=== PATIENT | female | born 1995 | race Caucasian/White ===

== ENCOUNTER 2023-06-01 16:17 | Inpatient (IN) | payer OTHER, SELFPAY ==
[2023-06-01 16:53] VITALS: BP 137/90; PULSE 119; RESP 22; TEMP 37.3; O2SAT 98; BMI 43.9
--- NOTE | 2023-06-01 16:59 | ED.PSYCH ---
HPI - Psych General Chief Complaint: Psychiatric Symptoms Stated Complaint: manic episode/physch consult Time Seen by Provider: 06/01/23 18:10 Source: patient Mode of arrival: ambulatory Limitations: no limitations History of Present Illness HPI Narrative: Patient with bipolar disorder on Lamictal been having increased stress lately to sleep having manic episode increased depressed crying often denies SI or HI Related Data Home Medications Medication Instructions Recorded Confirmed cetirizine 10 mg tablet 10 mg PO DAILY 06/01/23 06/01/23 lamotrigine 25 mg tablet 50 mg PO BEDTIME 06/01/23 06/01/23 spironolactone 25 mg tablet 25 mg PO BID 06/01/23 06/01/23 Allergies Allergy/AdvReac Type Severity Reaction Status Date / Time environmental allergies Allergy Unknown Verified 06/01/23 18:38 Review of Systems Review of Systems: Yes all other systems are reviewed and are negative [facility] Social History Social History Smoked in Last 30 Days: No Use of substances other than those prescribed or required for medical reasons: No Advance Directives: No Advance Directives Information Provided: No Physical Exam Vital Signs: Vital Signs: Last Vital Signs Temp 99.1 F 06/01/23 16:53 Pulse 119 H 06/01/23 16:53 Resp 16 06/01/23 18:00 BP 137/90 H 06/01/23 16:53 Pulse Ox 98 06/01/23 16:53 O2 Del Method Room Air 06/01/23 16:53 BMI result Body Mass Index 43.9 Appearance: Alert. Oriented X3. No acute distress. Eyes: PERRLA, No Nystagmus ENT: Pharynx normal. Oral Mucosa moist Neck: Normal inspection. Neck supple. CVS: Normal heart rate and rhythm. Pulses normal. Respiratory: No respiratory distress. Equal air entry bilateral, no wheezing/rales/rhonchi Abdomen: Soft and nontender. Bowel sounds are present, no mass palpable, no CVA tenderness Skin: Skin warm and dry. Normal skin color. Normal skin turgor. Extremities: No lower extremity edema. No calf tenderness psych: Anxious crying often feels manic denies SI or HI Neuro: Oriented X 3. No motor deficit. No sensory deficit.No cerebellar signs , cranial nerves II-XII intact Course Course Course Narrative: This is an RME: Additional HPI, ROS, PE not included below will be deferred to primary provider. This is a [id number]-female, hx of bipolar disorder, presenting to the emergency department with a complaint of ?manic episode. Partner is here which reports that she has had a manic episode over the last week. No SI/HI. She has not slept in 30 hours. Started lamictal last month. Started higher dose of lamictal 50mg last night. Plan: Labs Medications Administered Discontinued Medications Generic Name Dose Route Start Last Admin Trade Name Freq PRN Reason Stop Dose Admin Lorazepam 2 mg 06/01/23 18:20 06/01/23 18:38 Lorazepam 1 Mg Tablet PO 06/01/23 18:21 2 mg ONCE ONE Administration Medical Decision Making Medical Decision Making [facility] Narrative: Patient seen by CT him plan to admit for bipolar disorder with depression Differential Diagnosis Differential Diagnoses: The differential diagnosis associated with the presentation includes Bipolar disorder/PTSD Lab Data [facility] Lab Attestation statement: I reviewed the patient's lab results. 06/01/23 19:19 06/01/23 19:19 Labs: Lab Results 06/01/23 06/01/23 Range/Units 19:19 20:45 WBC 13.6 H (4.8-10.8) X10*3/uL RBC 4.96 (4.20-5.50) X10*6/uL Hgb 13.9 (12.0-16.0) g/dl Hct 41.2 (37.0-47.0) % MCV 83.1 (80.0-98.0) fL MCH 28.0 (27.0-33.0) pg MCHC 33.7 (31.0-35.0) g/dl RDW 13.2 (11.0-16.0) % Plt Count 388 (160-400) X10*3/uL MPV 10.2 (9.4-12.3) fL Immature Gran % (Auto) 0.3 (0.0-0.4) % Neut % (Auto) 76.3 H (45-73) % Lymph % (Auto) 16.1 L (20-40) % [place] % (Auto) 6.8 (2-11) % Eos % (Auto) 0.1 (0-4) % Baso % (Auto) 0.4 (0-2) % Lymph # (Auto) 2.2 (1.2-4.9) X10*3/uL [place] # (Auto) 0.9 (0.1-1.2) X10*3/uL Eos # (Auto) 0.0 (0.0-0.4) X10*3/uL Baso # (Auto) 0.1 (0.0-0.2) X10*3/uL Abs Immat Gran (auto) 0.04 H (0.00-0.03) X10*3/uL Absolute Neuts (auto) 10.4 H (2.0-8.3) x10*3/uL Absolute Nucleated RBC 0.000 (0.0-0.012) X10*3/uL Nucleated RBC % (auto) 0.0 (0.0-0.2) /100WBC Sodium 142 (135-145) mmol/L Potassium 4.0 (3.3-5.1) mmol/L Chloride 107 (96-108) mmol/L Carbon Dioxide 24 (22-29) mmol/L Anion Gap 15 (12-20) BUN 12 (9-16) mg/dL Creatinine 0.77 (0.5-1.4) mg/dL Estim Creat Clear Calc 121.6 Estimated GFR > 60 Random Glucose 88 (60-115) mg/dL Calcium 10.5 H (8.4-10.2) mg/dL Total Bilirubin 0.2 (0.0-1.0) mg/dL Direct Bilirubin < 0.2 (0.0-0.5) mg/dL AST 26 (5-31) U/L ALT 26 (0-31) U/L Alkaline Phosphatase 85 (39-117) U/L Total Protein 9.2 H (6.5-8.0) g/dL Albumin 4.6 (3.5-5.0) g/dL Ethyl Alcohol < 10 mg/dL COVID-19 (AMISHA) Negative (Negative) COVID-19 Clin Com See Note Discharge Plan Discharge Clinical Impression: Bipolar disorder, Depression Patient Disposition: Still a Patient Prescriptions: No Action spironolactone 25 mg tablet 25 mg PO BID lamotrigine 25 mg tablet 50 mg PO BEDTIME cetirizine 10 mg Tablet 10 mg PO DAILY Interventions: [place]-Suicide Risk Severity Scale Last Done: 06/01/23 19:22
[2023-06-01 18:00] VITALS: RESP 16
[2023-06-01] MEDS: LORazepam 1 MG TABLET 2 MG PO (18:38)
--- OUTSIDE RECORDS SUMMARY | 2023-06-01 18:48 | XMS_ITS | Continuity of Care Document ---
Author Name Unknown Organization [facility] Address [address] [facility], [address] Floor, [address] [place] [id number]- Care Team Providers Care Flue Tile Press Operator Name Role Phone Shyann HERNANDEZ, Terri M Primary Care Physician Encounter [facility] Date(s): 07/16/19 - 07/26/19 [facility] [address], [address], [address] [place] [id number]- [facility] Attending Physician: Gema Christy Admitting Physician: Gema Christy Referring Physician: AdmtrGema Allergies, Adverse Reactions, Alerts Substance Reaction Severity Status NKA Active Immunizations Given and Recorded Vaccine Date Status Refusal Reason tetanus-diphtheria toxoids (Td) 04/04/17 Given influenza virus vaccine, inactivated 1 04/04/17 Gi hector influenza virus vaccine, inactivated 2 04/24/13 Gi hector Influenza Virus Vaccine (oldterm) 3 03/17/17 Given Meningococcal Conjugate Vaccine 12/30/13 Given tetanus/diphtheria/pertussis, acel(Tdap) 4 11/07/06 Given Haemophilus B-Hepatitis B Vaccine 5 94 Given 1Result Comment: [04/04/2017] [id number] 2Admin Note: FLUARIX 3Admin Note: declined 4Admin Note: [facility] 5Result Comment: [01/18/2013] historical data Medications albuterol 90 mcg/inh inhalation powder 2 puffs, Inhalation, Every 4 hours, PRN as needed, # 1 each, 0 Refills, Maintenance, 07/25/18 12:20:11 EST, Powder, 2 puffs Inhalation Every 4 hours,PRN:as needed Start Date: 07/25/18 Status: Ordered Cannabis (Schedule I Substance) 0 Refills, Maintenance, 07/25/18 11:47:47 EST Start Date: 07/25/18 Status: Ordered Problem List Condition Effective Dates Status Health Status Inform ant Childhood absence epilepsy(C onfirmed) 1 Active Hyperhidrosis(Confirmed) Active Common migraine(Confirmed) Active Nephrolithiasis(Confirmed) 02/07/13 Active Obesity (BMI 30-39.9)(Confirmed) Active 1In remission off treatment since 2004, age 9 Social History Social History Type Response Smoking Status Never smoker entered on: 04/04/17 Sex
--- OUTSIDE RECORDS SUMMARY | 2023-06-01 18:48 | XMS_ITS | Continuity of Care Document ---
Author Name Unknown Organization [facility] Address [address] [facility], [address] Floor, [address] [place] [id number]- Care Team Providers Care Youth Worker Name Role Phone Terri Boothe NP Primary Care Physician Encounter [facility] Date(s): 04/17/19 - 08/15/19 [facility] [address], [address], [address] [place] [id number]- [facility] Attending Physician: Kaylan Dior NP Admitting Physician: Kalyan Dior NP Referring Physician: Terri Boothe NP Allergies, Adverse Reactions, Alerts Substance Reaction Severity [...] Vaccine 5 94 Given 1Result Comment: [04/04/2017] [id number] 2Admin Note: FLUARIX 3Admin Note: declined 4Admin Note: [facility] 5Result Comment: [01/18/2013] historical data Medications [...]
[2023-06-01 19:28] LABS: MANUAL DIFF FLAG NO
[2023-06-01 19:32] LABS: Basophils Absolute Auto 0.1 X10*3/uL (0.0-0.2); Basophils Percent Auto 0.4 % (0-2); Eosinophils Percent Auto 0.1 % (0-4); Hematocrit 41.2 % (37.0-47.0); Hemoglobin 13.9 g/dl (12.0-16.0); Imm Gran Abs Auto 0.04 X10*3/uL (0.00-0.03); Imm Gran Pct Auto 0.3 % (0.0-0.4); Lymphocytes Absolute Auto 2.2 X10*3/uL (1.2-4.9); Lymphocytes Percent Auto 16.1 % (20-40); Mean Corpuscular HGB Conc 33.7 g/dl (31.0-35.0); Mean Corpuscular Volume 83.1 fL (80.0-98.0); Mean Platelet Volume 10.2 fL (9.4-12.3); Monocytes Absolute Auto 0.9 X10*3/uL (0.1-1.2); Monocytes Percent Auto 6.8 % (2-11); Neutrophils Absolute Auto 10.4 x10*3/uL (2.0-8.3); Neutrophils Percent Auto 76.3 % (45-73); Platelet Count 388 X10*3/uL (160-400); Red Blood Count 4.96 X10*6/uL (4.20-5.50); Red Cell Distribution Width 13.2 % (11.0-16.0); White Blood Count 13.6 X10*3/uL (4.8-10.8)
[2023-06-01 19:43] LABS: Ethanol < 10 mg/dL
[2023-06-01 19:46] LABS: Alanine Aminotransferase 26 U/L (0-31); Albumin Level 4.6 g/dL (3.5-5.0); Alkaline Phosphatase 85 U/L (39-117); Anion Gap 15 (12-20); Aspartate Amino Transferase 26 U/L (5-31); Bilirubin Direct < 0.2 mg/dL (0.0-0.5); Bilirubin Total 0.2 mg/dL (0.0-1.0); Blood Urea Nitrogen 12 mg/dL (9-16); Calcium 10.5 mg/dL (8.4-10.2); Carbon Dioxide 24 mmol/L (22-29); Chloride 107 mmol/L (96-108); Creatinine Clr Calc Pharmacy 121.6; Estimated Glomerular Filt Rate > 60; Glucose Random 88 mg/dL (60-115); Sodium 142 mmol/L (135-145); Total Protein 9.2 g/dL (6.5-8.0)
[2023-06-01 21:08] LABS: COVID-19 Test Negative (Negative); IDNOW Serial# 08D9AD1C
--- NOTE | 2023-06-01 22:13 | MHC.EDTECH ---
pt unable to provide enough urine for complete uranalysis testing. RN MADE AWARE. danny
[2023-06-02 00:43] LABS: Appearance Urine Turbid; Color Urine Dark Yellow; Glucose Urine UA Negative (Negative); Leukocyte Esterase Urine Negative (Negative); Nitrite Urine Negative (Negative); PH 5.5 (5.0-9.0); Specific Gravity - Urine >= 1.030 (1.005-1.025); UMIC TRIGGER UACC YES; Urine Blood Trace (Negative); Urine Ketones Trace mg/dL (Negative); Urine Protein Trace mg/dL (Neg-Trace)
[2023-06-02 00:45] LABS: Amphetamine Screen Urine Not Detected (Not Detect); Barbiturates, Urine Not Detected (Not Detect); Benzodiazepines Screen Urine Not Detected (Not Detect); Cannabinoid Screen Urine Not Detected (Not Detect); Cocaine Screen Urine Not Detected (Not Detect); Fentanyl, urine Not Detected (Not Detect); Opiate Screen Urine Not Detected (Not Detect); Phencyclidine Screen Urine Not Detected (Not Detect)
[2023-06-02 01:02] LABS: Bacteria Urine 4+ (None Seen); Calcium Oxalate Crystals Urine Present; Hyaline Casts Urine 0-2 /LPF (0-2); Squamous Epithelial Cell Urine >20 /HPF (0-2); WBC Urine 0-5 /HPF (0-5)
--- NOTE | 2023-06-02 03:15 | PC.NURSE ---
Took over care of Barbara at 3:00am, pt sleeping at this time.
[2023-06-02 03:40] LABS: UPreg QC Valid YES; Urine Pregnancy NEGATIVE (NEGATIVE)
[2023-06-02] MEDS: diphenhydrAMINE HCL 25 MG CAPSULE 50 MG PO (03:41)
[2023-06-02] MEDS: OLANZapine 10 MG TABLET PO (03:41)
--- NOTE | 2023-06-02 03:43 | PC.NURSE ---
Pt medicated per Mar.
--- NOTE | 2023-06-02 08:21 | MHC.CARE ---
Reference number [id number] Tania 06/02/23, assessment faxed to [phone]. Pt has [employer] managed by [facility], . Insurance rep gave online portal info, [email or web address]
--- NOTE | 2023-06-02 08:38 | PC.NURSE ---
Significant other notified of transferred to . CVB signed ,Transferred to with 2 RN`s and security
--- NOTE | 2023-06-02 09:13 | P.PNPSI_ITS ---
Subjective Subjective Date of Service: 06/02/23 Reason For Visit: Bipolar episode Interim History: Met with patient; discussed with team; reviewed notes Diagnostics Vital Signs (24Hr): Vital Signs - 24 hr 06/01/23 16:53 06/01/23 18:00 Temperature 99.1 F Pulse Rate 119 H Respiratory Rate 22 H 16 Blood Pressure 137/90 H Pulse Oximetry 98 Oxygen Delivery Method Room Air BMI result Body Mass Index 43.9 Labs 06/01/23 19:19 06/01/23 19:19 Labs: Laboratory Results - last 48 hr 06/01/23 06/01/23 06/01/23 19:19 20:45 21:38 WBC 13.6 H RBC 4.96 Hgb 13.9 Hct 41.2 MCV 83.1 MCH 28.0 MCHC 33.7 RDW 13.2 Plt Count 388 MPV 10.2 Immature Gran % (Auto) 0.3 Neut % (Auto) 76.3 H Lymph % (Auto) 16.1 L [place] % (Auto) 6.8 Eos % (Auto) 0.1 Baso % (Auto) 0.4 Lymph # (Auto) 2.2 [place] # (Auto) 0.9 Eos # (Auto) 0.0 Baso # (Auto) 0.1 Abs Immat Gran (auto) 0.04 H Absolute Neuts (auto) 10.4 H Absolute Nucleated RBC 0.000 Nucleated RBC % (auto) 0.0 Sodium 142 Potassium 4.0 Chloride 107 Carbon Dioxide 24 Anion Gap 15 BUN 12 Creatinine 0.77 Estim Creat Clear Calc 121.6 Estimated GFR > 60 Random Glucose 88 Calcium 10.5 H Total Bilirubin 0.2 Direct Bilirubin < 0.2 AST 26 ALT 26 Alkaline Phosphatase 85 Total Protein 9.2 H Albumin 4.6 Urine Color Dark Yellow Urine Appearance Turbid Urine pH 5.5 Ur Specific [place] >= 1.030 H Urine Protein Trace Urine Glucose (UA) Negative Urine Ketones Trace Urine Blood Trace H Urine Nitrite Negative Ur Leukocyte Esterase Negative Urine RBC 3-5 H Urine WBC 0-5 Ur Squamous Epith Cells >20 Calcium Oxalate Crystal Present Urine Bacteria 4+ Hyaline Casts 0-2 Urine Test Urine Opiates Screen Not Detected Urine Fentanyl Screen Not Detected Ur Barbiturates Screen Not Detected Ur Phencyclidine Scrn Not Detected Ur Amphetamines Screen Not Detected U Benzodiazepines Scrn Not Detected Urine Cocaine Screen Not Detected U Marijuana (THC) Screen Not Detected Ethyl Alcohol < 10 COVID-19 (AMISHA) Negative COVID-19 Clin Com See Note 06/02/23 03:30 WBC RBC Hgb Hct MCV MCH MCHC RDW Plt Count MPV Immature Gran % (Auto) Neut % (Auto) Lymph % (Auto) [place] % (Auto) Eos % (Auto) Baso % (Auto) Lymph # (Auto) [place] # (Auto) Eos # (Auto) Baso # (Auto) Abs Immat Gran (auto) Absolute Neuts (auto) Absolute Nucleated RBC Nucleated RBC % (auto) Sodium Potassium Chloride Carbon Dioxide Anion Gap BUN Creatinine Estim Creat Clear Calc Estimated GFR Random Glucose Calcium Total Bilirubin Direct Bilirubin AST ALT Alkaline Phosphatase Total Protein Albumin Urine Color Urine Appearance Urine pH Ur Specific [place] Urine Protein Urine Glucose (UA) Urine Ketones Urine Blood Urine Nitrite Ur Leukocyte Esterase Urine RBC Urine WBC Ur Squamous Epith Cells Calcium Oxalate Crystal Urine Bacteria Hyaline Casts Urine Test NEGATIVE Urine Opiates Screen Urine Fentanyl Screen Ur Barbiturates Screen Ur Phencyclidine Scrn Ur Amphetamines Screen U Benzodiazepines Scrn Urine Cocaine Screen U Marijuana (THC) Screen Ethyl Alcohol COVID-19 (AMISHA) COVID-19 Clin Com Medications Medications Current Medications Acetaminophen (Acetaminophen 325 Mg Tablet) 650 mg PO Q6H PRN PRN Reason: Headache/Pain Mild Scale (1-3) Al Hydroxide/Mg Hydroxide (Magnesium Hydrox/Alum Hydrox 30 Ml Oral.Susp) 30 ml PO Q6H PRN PRN Reason: Heartburn/Nausea Hydroxyzine HCl (Hydroxyzine Hcl 25 Mg Tablet) 25 mg PO Q6H PRN PRN Reason: Anxiety Lamotrigine (Lamotrigine 25 Mg Tablet) 50 mg PO BEDTIME TINO Loratadine (Loratadine 10 Mg Tablet) 10 mg PO DAILY TINO Lorazepam (Lorazepam 1 Mg Tablet) 1 mg PO Q4H PRN PRN Reason: chikis Magnesium Hydroxide (Milk Of Magnesia 30 Ml Oral.Susp) 30 ml PO DAILY PRN PRN Reason: Constipation Olanzapine (Olanzapine 5 Mg Tablet) 5 mg PO Q4H PRN PRN Reason: chikis Spironolactone (Spironolactone 25 Mg Tablet) 25 mg PO BID TINO; Protocol Trazodone HCl (Trazodone Hcl 50 Mg Tablet) 50 mg PO BEDTIME MRX1 PRN PRN Reason: Insomnia Allergies Allergies Allergy/AdvReac Type Severity Reaction Status Date / Time environmental allergies Allergy Unknown Verified 06/01/23 18:38 Assessment & Plan Time Spent With Patient Time: Total time managing care of this patient today ____ minutes.
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
[2023-06-02 10:44] VITALS: BP 147/75; PULSE 99; RESP 16; TEMP 37.4; O2SAT 98
[2023-06-02] MEDS: Spironolactone 25 MG TABLET PO ×2 (11:11→21:21)
[2023-06-02] MEDS: Loratadine 10 MG TABLET PO (11:11)
[2023-06-02] MEDS: LORazepam 1 MG TABLET PO ×2 (11:11→21:20)
--- NOTE | 2023-06-02 14:22 | PC.NURSE ---
pt is a 27year old cisgender woman who arrived on the unit 06/02/23 @ 0845am on a CV. Skin check and vitals performed, belongings inventoried, and pt own medications brought to pharmacy. Pt placed on 15 minute checks for safety. Pt was pleasant during admission assessment however was hyperverbal and tangential and kept referring back to theory and physics . Pts recollection of events leading up to hospitalization are unclear as patient could not focus on the question at hand. According to intake, the pts partner reports the pt has had poor sleep and increased depression in addition to being hyperverbal after recent med changes in April. Pt was oriented to the unit and all admission and legal paperwork completed.
[2023-06-02 14:24] LABS: Influenza A PCR NEGATIVE (Negative); Influenza B PCR NEGATIVE (Negative); Resp Syncy Virus RNA Qual PCR NEGATIVE (Negative); SARS COV2 PCR INHOUSE NEGATIVE (Negative)
[2023-06-02 18:00] VITALS: BP 147/87; PULSE 125; RESP 22; TEMP 36.6; O2SAT 100
[2023-06-02] MEDS: OLANZapine 5 MG TABLET PO (21:20)
[2023-06-02] MEDS: Lithium Carbonate ER 300 MG TABLET.ER 600 MG PO (21:20)
[2023-06-02] MEDS: traZODone HCL 50 MG TABLET PO (21:20)
[2023-06-02] MEDS: lamoTRIgine 25 MG TABLET 50 MG PO (21:20)
[2023-06-03] MEDS: Loratadine 10 MG TABLET PO (08:36)
[2023-06-03] MEDS: Spironolactone 25 MG TABLET PO ×2 (08:36→20:07)
[2023-06-03 08:40] VITALS: BP 126/74; PULSE 98; RESP 16; TEMP 36.4; O2SAT 100
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
--- NOTE | 2023-06-03 13:03 | PC.NURSE ---
pt's girlfriend called for an update on the pt and to provide information since the pts chikis and pressured speech make it difficult to gather the pt's history. Maria M (girlfriend) reports the patient was recently switched from Zoloft to Lamictal and few weeks ago which is when the pts symptoms and behavior began to decline. Maria M also reports the manic speech Gela is experiencing, in her opinion, is a symptom of her increased anxiety. Maria M also reports the patient has been diagnosed w/ PCOS and at her last appt (time unknown) and it was found the patient had a cyst that detached. Also it's reported the pt has not had a period in over 80days and Maria M believes some of the pts psychiatric symptoms may be hormonally based. Maria M also reports a family history of mental illness including an aunt diagnosed w/ schizoaffective disorder BP type and her mother, who has not sought mental help, but has a history of moravian preoccupation. Maria M reports that Gela and her mother are estranged as Gela is florez and her mother believes she will go to [facility].
[2023-06-03 18:00] VITALS: BP 124/89; PULSE 111; RESP 18
[2023-06-03] MEDS: traZODone HCL 50 MG TABLET PO (20:07)
[2023-06-03] MEDS: OLANZapine 5 MG TABLET PO (20:07)
[2023-06-03] MEDS: Lithium Carbonate ER 300 MG TABLET.ER 600 MG PO (20:07)
[2023-06-03] MEDS: lamoTRIgine 25 MG TABLET 50 MG PO (20:07)
--- NOTE | 2023-06-04 07:33 | MHC.CARE ---
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 Contact on fax is Margarita PUENTE, RN [facility] [place] RN [address] [place] [id number] P: [phone] F: [phone] emails: [email or web address] Send to the fax on unit 06/04 952y
[2023-06-04] MEDS: Loratadine 10 MG TABLET PO (09:01)
[2023-06-04] MEDS: Spironolactone 25 MG TABLET PO ×2 (09:01→21:54)
[2023-06-04 09:22] VITALS: BP 135/84; PULSE 98; RESP 16; TEMP 37; O2SAT 99
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
[2023-06-04 16:40] VITALS: BP 130/76; PULSE 105; RESP 16; TEMP 37; O2SAT 94
[2023-06-04] MEDS: lamoTRIgine 25 MG TABLET 50 MG PO (21:54)
[2023-06-04] MEDS: Lithium Carbonate ER 300 MG TABLET.ER 600 MG PO (21:58)
[2023-06-04] MEDS: OLANZapine 5 MG TABLET PO (21:58)
[2023-06-04] MEDS: LORazepam 1 MG TABLET PO (23:40)
[2023-06-05] MEDS: OLANZapine 5 MG TABLET PO ×2 (00:17→21:25)
[2023-06-05] MEDS: traZODone HCL 50 MG TABLET PO (01:01)
[2023-06-05 06:00] VITALS: BP 115/56; PULSE 89; RESP 16; TEMP 36.6; O2SAT 100
[2023-06-05] MEDS: Loratadine 10 MG TABLET PO (08:50)
[2023-06-05] MEDS: Spironolactone 25 MG TABLET PO ×2 (08:50→21:26)
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
[2023-06-05] MEDS: LORazepam 1 MG TABLET PO ×2 (13:46→21:25)
[2023-06-05 18:00] VITALS: BP 137/80; PULSE 111; TEMP 37; O2SAT 97
[2023-06-05] MEDS: Lithium Carbonate ER 450 MG TABLET.ER 900 MG PO (21:25)
[2023-06-05] MEDS: lamoTRIgine 25 MG TABLET 50 MG PO (21:26)
[2023-06-06 06:00] VITALS: BP 139/94; PULSE 94; RESP 16; TEMP 36.1; O2SAT 100
[2023-06-06] MEDS: Spironolactone 25 MG TABLET PO ×2 (08:25→21:25)
[2023-06-06] MEDS: Loratadine 10 MG TABLET PO (08:26)
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
[2023-06-06 13:20] VITALS: BP 130/71; PULSE 94
[2023-06-06] MEDS: OLANZapine 5 MG TABLET PO ×2 (13:32→21:25)
[2023-06-06] MEDS: cloNIDine HCL 0.1 MG TABLET PO (13:32)
[2023-06-06] MEDS: OLANZapine 10 MG TABLET PO (16:34)
[2023-06-06 18:00] VITALS: BP 114/70; PULSE 88; RESP 22; TEMP 36.7; O2SAT 97
[2023-06-06] MEDS: lamoTRIgine 25 MG TABLET 50 MG PO (21:25)
[2023-06-06] MEDS: traZODone HCL 50 MG TABLET PO (21:25)
[2023-06-06] MEDS: Lithium Carbonate ER 450 MG TABLET.ER 900 MG PO (21:25)
[2023-06-07] MEDS: Spironolactone 25 MG TABLET PO ×2 (07:58→20:19)
[2023-06-07] MEDS: Loratadine 10 MG TABLET PO (07:58)
[2023-06-07 08:10] VITALS: BP 118/69; PULSE 85; RESP 16; TEMP 37; O2SAT 98
[2023-06-07 08:47] LABS: Blood Urea Nitrogen 11 mg/dL (9-16); Creatinine Clr Calc Pharmacy 118.5; Estimated Glomerular Filt Rate > 60
[2023-06-07 08:53] LABS: Lithium 1.02 mmol/L (0.60-1.20)
[2023-06-07 17:15] VITALS: BP 120/70; PULSE 94; RESP 16; TEMP 37; O2SAT 98
[2023-06-07] MEDS: cloNIDine HCL 0.1 MG TABLET PO (17:26)
[2023-06-07] MEDS: OLANZapine 5 MG TABLET PO ×2 (17:26→20:20)
[2023-06-07] MEDS: traZODone HCL 50 MG TABLET PO ×2 (20:19→21:38)
[2023-06-07] MEDS: Lithium Carbonate ER 450 MG TABLET.ER 900 MG PO (20:20)
[2023-06-07] MEDS: lamoTRIgine 25 MG TABLET 50 MG PO (20:20)
[2023-06-08 01:40] VITALS: BP 115/73; PULSE 93
[2023-06-08] MEDS: hydrOXYzine HCL 25 MG TABLET PO ×2 (02:05→13:51)
[2023-06-08] MEDS: traZODone HCL 50 MG TABLET PO ×2 (03:19→21:15)
[2023-06-08] MEDS: OLANZapine 5 MG TABLET PO ×3 (03:19→21:09)
[2023-06-08 08:16] VITALS: BP 116/65; PULSE 75; RESP 16; TEMP 36.7; O2SAT 98
[2023-06-08] MEDS: Loratadine 10 MG TABLET PO (09:33)
[2023-06-08] MEDS: Spironolactone 25 MG TABLET PO ×2 (09:33→21:09)
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
[2023-06-08] MEDS: cloNIDine HCL 0.1 MG TABLET PO (13:51)
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
[2023-06-08 16:26] LABS: Lithium 0.72 mmol/L (0.60-1.20)
[2023-06-08 16:58] VITALS: BP 107/62; PULSE 88; RESP 16; TEMP 36.8; O2SAT 98
[2023-06-08] MEDS: lamoTRIgine 25 MG TABLET 50 MG PO (21:09)
[2023-06-08] MEDS: Lithium Carbonate ER 450 MG TABLET.ER 900 MG PO (21:10)
[2023-06-09] MEDS: traZODone HCL 50 MG TABLET PO ×2 (01:27→19:33)
[2023-06-09] MEDS: hydrOXYzine HCL 25 MG TABLET PO ×3 (01:27→20:17)
[2023-06-09] MEDS: cloNIDine HCL 0.1 MG TABLET PO (07:01)
[2023-06-09 08:50] VITALS: BP 128/80; PULSE 79; TEMP 36.8; O2SAT 98
[2023-06-09] MEDS: Spironolactone 25 MG TABLET PO ×2 (09:05→19:32)
[2023-06-09] MEDS: Loratadine 10 MG TABLET PO (09:05)
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
[2023-06-09] MEDS: OLANZapine 5 MG TABLET PO ×2 (12:30→19:32)
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
[2023-06-09 18:00] VITALS: BP 122/72; PULSE 78; RESP 16; TEMP 37.1; O2SAT 98
[2023-06-09] MEDS: Lithium Carbonate ER 450 MG TABLET.ER 900 MG PO (19:32)
[2023-06-09] MEDS: lamoTRIgine 25 MG TABLET 50 MG PO (19:32)
[2023-06-10 08:00] VITALS: BP 132/69; PULSE 88; RESP 18; TEMP 36.3; O2SAT 100
[2023-06-10 08:04] LABS: Lithium 1.04 mmol/L (0.60-1.20)
[2023-06-10 08:14] LABS: Anion Gap 16 (12-20); Blood Urea Nitrogen 12 mg/dL (9-16); Calcium 9.9 mg/dL (8.4-10.2); Carbon Dioxide 21 mmol/L (22-29); Chloride 106 mmol/L (96-108); Creatinine Clr Calc Pharmacy 110.1; Estimated Glomerular Filt Rate > 60; Glucose Random 81 mg/dL (60-115); Sodium 139 mmol/L (135-145)
[2023-06-10 08:32] LABS: TSH reflex Free T4 1.37 uIU/mL (0.32-4.0)
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
[2023-06-10] MEDS: Spironolactone 25 MG TABLET PO ×2 (09:28→20:07)
[2023-06-10] MEDS: Loratadine 10 MG TABLET PO (09:28)
[2023-06-10] MEDS: hydrOXYzine HCL 25 MG TABLET PO (09:29)
[2023-06-10] MEDS: cloNIDine HCL 0.1 MG TABLET PO (10:30)
[2023-06-10] MEDS: Divalproex Sodium ER 250 MG TAB.ER.24H PO (10:30)
[2023-06-10 20:00] VITALS: BP 110/70; PULSE 88; TEMP 36.9; O2SAT 95
[2023-06-10] MEDS: OLANZapine 5 MG TABLET PO (20:07)
[2023-06-10] MEDS: lamoTRIgine 25 MG TABLET 50 MG PO (20:07)
[2023-06-10] MEDS: traZODone HCL 50 MG TABLET PO (20:07)
[2023-06-10] MEDS: Lithium Carbonate ER 450 MG TABLET.ER 900 MG PO (20:07)
[2023-06-11] MEDS: traZODone HCL 50 MG TABLET PO ×2 (00:26→22:33)
[2023-06-11] MEDS: hydrOXYzine HCL 25 MG TABLET PO ×4 (00:26→22:33)
[2023-06-11 08:35] VITALS: BP 101/57; PULSE 78; TEMP 36.7; O2SAT 97
[2023-06-11] MEDS: Spironolactone 25 MG TABLET PO ×2 (08:57→22:32)
[2023-06-11] MEDS: Loratadine 10 MG TABLET PO (08:57)
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
[2023-06-11] MEDS: OLANZapine 5 MG TABLET PO ×3 (11:01→22:33)
[2023-06-11 14:55] VITALS: BP 117/72
[2023-06-11] MEDS: cloNIDine HCL 0.1 MG TABLET PO ×2 (14:56→18:51)
[2023-06-11 18:00] VITALS: BP 95/55; PULSE 82; RESP 17; TEMP 37; O2SAT 99
[2023-06-11] MEDS: Acetaminophen 325 MG TABLET 650 MG PO (18:54)
[2023-06-11 22:30] VITALS: BP 108/76; PULSE 84
[2023-06-11] MEDS: Lithium Carbonate ER 450 MG TABLET.ER 900 MG PO (22:32)
[2023-06-11] MEDS: lamoTRIgine 25 MG TABLET 50 MG PO (22:32)
[2023-06-11] MEDS: Divalproex Sodium ER 250 MG TAB.ER.24H 750 MG PO (22:33)
[2023-06-12] MEDS: traZODone HCL 50 MG TABLET PO (02:39)
[2023-06-12] MEDS: cloNIDine HCL 0.1 MG TABLET PO (06:26)
[2023-06-12] MEDS: hydrOXYzine HCL 25 MG TABLET PO (06:26)
[2023-06-12 06:29] VITALS: BP 105/62; PULSE 85
[2023-06-12 08:00] VITALS: BP 115/70; PULSE 84; RESP 16; TEMP 37; O2SAT 98
[2023-06-12] MEDS: Loratadine 10 MG TABLET PO (08:06)
[2023-06-12] MEDS: Spironolactone 25 MG TABLET PO ×2 (08:06→19:47)
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
[2023-06-12 17:12] VITALS: BP 121/58; PULSE 89; RESP 16; TEMP 36.9; O2SAT 95
[2023-06-12] MEDS: lamoTRIgine 25 MG TABLET 50 MG PO (19:47)
[2023-06-12] MEDS: Divalproex Sodium ER 250 MG TAB.ER.24H 750 MG PO (19:47)
[2023-06-12] MEDS: OLANZapine 5 MG TABLET PO (19:48)
[2023-06-12] MEDS: Lithium Carbonate ER 450 MG TABLET.ER 900 MG PO (19:48)
[2023-06-13] MEDS: hydrOXYzine HCL 25 MG TABLET PO ×2 (01:34→10:43)
[2023-06-13] MEDS: traZODone HCL 50 MG TABLET PO ×2 (01:34→20:38)
[2023-06-13 06:00] VITALS: BP 101/64; PULSE 85; RESP 18; TEMP 36.6; O2SAT 100
[2023-06-13] MEDS: cloNIDine HCL 0.1 MG TABLET PO ×2 (06:28→10:42)
[2023-06-13 08:30] VITALS: BP 118/69; PULSE 78; RESP 16; TEMP 36.2; O2SAT 94
[2023-06-13] MEDS: Spironolactone 25 MG TABLET PO ×2 (09:13→20:38)
[2023-06-13] MEDS: Loratadine 10 MG TABLET PO (09:13)
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
[2023-06-13] MEDS: OLANZapine 5 MG TABLET PO ×2 (10:01→22:26)
[2023-06-13 10:41] VITALS: BP 119/63; PULSE 89
[2023-06-13 18:00] VITALS: BP 129/66; PULSE 96; RESP 16; TEMP 38.7; O2SAT 97
[2023-06-13 19:39] LABS: MANUAL DIFF FLAG NO
[2023-06-13 19:40] LABS: Basophils Percent Auto 0.3 % (0-2); Eosinophils Percent Auto 0.1 % (0-4); Hematocrit 34.6 % (37.0-47.0); Hemoglobin 11.4 g/dl (12.0-16.0); Imm Gran Abs Auto 0.02 X10*3/uL (0.00-0.03); Imm Gran Pct Auto 0.2 % (0.0-0.4); Lymphocytes Absolute Auto 1.9 X10*3/uL (1.2-4.9); Lymphocytes Percent Auto 18.7 % (20-40); Mean Corpuscular HGB Conc 32.9 g/dl (31.0-35.0); Mean Corpuscular Hemoglobin 27.9 pg (27.0-33.0); Mean Corpuscular Volume 84.8 fL (80.0-98.0); Mean Platelet Volume 10.1 fL (9.4-12.3); Monocytes Absolute Auto 0.8 X10*3/uL (0.1-1.2); Monocytes Percent Auto 7.7 % (2-11); Neutrophils Absolute Auto 7.2 x10*3/uL (2.0-8.3); Platelet Count 300 X10*3/uL (160-400); Red Blood Count 4.08 X10*6/uL (4.20-5.50); Red Cell Distribution Width 13.3 % (11.0-16.0); White Blood Count 9.9 X10*3/uL (4.8-10.8)
[2023-06-13] MEDS: Divalproex Sodium ER 250 MG TAB.ER.24H 750 MG PO (20:37)
[2023-06-13] MEDS: Acetaminophen 325 MG TABLET 650 MG PO (20:37)
[2023-06-13] MEDS: lamoTRIgine 25 MG TABLET 50 MG PO (20:37)
[2023-06-13] MEDS: Lithium Carbonate ER 450 MG TABLET.ER 900 MG PO (20:37)
[2023-06-13 20:52] LABS: Influenza A PCR NEGATIVE (Negative); Influenza B PCR NEGATIVE (Negative); Resp Syncy Virus RNA Qual PCR NEGATIVE (Negative); SARS COV2 PCR INHOUSE NEGATIVE (Negative)
[2023-06-14] MEDS: Acetaminophen 325 MG TABLET 650 MG PO (06:12)
[2023-06-14] MEDS: hydrOXYzine HCL 25 MG TABLET PO ×2 (06:12→18:47)
[2023-06-14 08:00] VITALS: BP 103/55; PULSE 75; RESP 16; TEMP 36.6; O2SAT 100
[2023-06-14] MEDS: Spironolactone 25 MG TABLET PO ×2 (08:30→22:38)
[2023-06-14] MEDS: Loratadine 10 MG TABLET PO (08:30)
[2023-06-14 09:55] LABS: MANUAL DIFF FLAG NO
[2023-06-14 09:58] LABS: Basophils Percent Auto 0.4 % (0-2); Eosinophils Percent Auto 0.1 % (0-4); Hematocrit 35.7 % (37.0-47.0); Hemoglobin 11.9 g/dl (12.0-16.0); Imm Gran Abs Auto 0.01 X10*3/uL (0.00-0.03); Imm Gran Pct Auto 0.1 % (0.0-0.4); Lymphocytes Percent Auto 23.6 % (20-40); Mean Corpuscular HGB Conc 33.3 g/dl (31.0-35.0); Mean Corpuscular Hemoglobin 28.2 pg (27.0-33.0); Mean Corpuscular Volume 84.6 fL (80.0-98.0); Monocytes Absolute Auto 0.6 X10*3/uL (0.1-1.2); Monocytes Percent Auto 7.2 % (2-11); Neutrophils Absolute Auto 5.8 x10*3/uL (2.0-8.3); Neutrophils Percent Auto 68.6 % (45-73); Platelet Count 286 X10*3/uL (160-400); Red Blood Count 4.22 X10*6/uL (4.20-5.50); Red Cell Distribution Width 13.5 % (11.0-16.0); White Blood Count 8.5 X10*3/uL (4.8-10.8)
[2023-06-14 10:13] LABS: Ammonia 46 umol/L (13-55)
[2023-06-14 10:24] LABS: Alanine Aminotransferase 21 U/L (0-31); Albumin Level 4.1 g/dL (3.5-5.0); Alkaline Phosphatase 65 U/L (39-117); Anion Gap 12 (12-20); Aspartate Amino Transferase 26 U/L (5-31); Bilirubin Direct 0.1 mg/dL (0.0-0.5); Bilirubin Total 0.3 mg/dL (0.0-1.0); Carbon Dioxide 26 mmol/L (22-29); Chloride 103 mmol/L (96-108); Potassium 3.6 mmol/L (3.3-5.1); Sodium 137 mmol/L (135-145); Total Protein 7.7 g/dL (6.5-8.0)
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
[2023-06-14 13:59] VITALS: TEMP 36.9
[2023-06-14 14:25] VITALS: BP 114/68
[2023-06-14] MEDS: cloNIDine HCL 0.1 MG TABLET PO (14:25)
[2023-06-14] MEDS: OLANZapine 5 MG TABLET PO ×2 (18:47→22:37)
[2023-06-14 19:25] VITALS: BP 116/75; PULSE 88; RESP 16; TEMP 36.8; O2SAT 99
[2023-06-14 20:57] LABS: Influenza A PCR NEGATIVE (Negative); Influenza B PCR NEGATIVE (Negative); Resp Syncy Virus RNA Qual PCR NEGATIVE (Negative); SARS COV2 PCR INHOUSE NEGATIVE (Negative)
[2023-06-14 22:20] VITALS: BP 104/57; PULSE 81
[2023-06-14] MEDS: Divalproex Sodium ER 250 MG TAB.ER.24H 1250 MG PO (22:36)
[2023-06-14] MEDS: traZODone HCL 50 MG TABLET PO (22:37)
[2023-06-14] MEDS: Lithium Carbonate ER 450 MG TABLET.ER 900 MG PO (22:38)
[2023-06-15] MEDS: OLANZapine 5 MG TABLET PO ×3 (03:36→22:27)
[2023-06-15] MEDS: hydrOXYzine HCL 25 MG TABLET PO ×2 (03:38→13:22)
[2023-06-15] MEDS: cloNIDine HCL 0.1 MG TABLET PO (06:43)
[2023-06-15 07:00] VITALS: BMI 44.2
[2023-06-15] MEDS: Loratadine 10 MG TABLET PO (08:10)
[2023-06-15] MEDS: Spironolactone 25 MG TABLET PO ×2 (08:10→22:27)
[2023-06-15 08:25] VITALS: BP 96/53; PULSE 70; RESP 16; TEMP 36.7; O2SAT 97
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
[2023-06-15] MEDS: Acetaminophen 325 MG TABLET 650 MG PO (16:39)
[2023-06-15 18:00] VITALS: BP 97/53; PULSE 83; TEMP 36.9; O2SAT 98
--- NOTE | 2023-06-15 21:26 | P.CONHOSP_ITS ---
History of Present Illness Data of Consult Service Date: 06/15/23 Primary Care Provider: Terri Boothe NP HPI Reason for consult: Rash on calf and thigh bilaterally Patient is a 27-year-old female with a PMH significant for bipolar disorder who was admitted to [facility] psychiatry unit for manic episode and disorganized thought. Medical consult for bilateral rash on calf and thighs for patient on Lamictal to r/o SJS. Attempted to visit patient during late afternoon, but patient unavailable. Will attempt to revisit later in the evening or tomorrow during the day. Patient valuable for examination on 06/16/2023. Patient states she 1st noticed red rash on posterior left calf around Thanksgi. States she recently started Lamictal 1 week prior on 05/13. Patient soon developed symmetrical red rash on posterior right calf, and then more diffuse red rash on inner thighs bilaterally. Rashes neither painful nor pruritic. Patient denies prodrome flu- like symptoms: No fever, chills, nausea, vomiting, cough, rhinorrhea prior to rash starting. Patient reports a history of psoriasis primarily on her hands for which she has been seen at [facility]. Review of Systems 2 Review of Systems: Symmetrical red rash on posterior calves and inner thighs Denies rash is painful or pruritic Denies fever, chills, nausea, vomiting, abdominal pain No cough, rhinorrhea, nasal congestion PMFSH Medical History PTSD (post-traumatic stress disorder) Bipolar 1 disorder Social History Household Members: Significant Other Household Members Other:: Maria M (partner) and Toña (cat) Housing: Apartment Do you presently have visiting nurse or other home services: No Patient Tobacco Use Status: Never used Tobacco Smoked in Last 30 Days: No e-Cigarette/Vaping Use: Former Use Patient Interested in Nicotine Replacement: No Patient Given Instructions on How to Stop Smoking: No Second Hand Smoke Exposure: No Use of substances other than those prescribed or required for medical reasons: Yes Substance Use Type: Marijuana Last Used Substance Other:: marijuana 01/24/2022 Currently Displaying Signs/Symptoms of Drug Intoxication Withdrawal: No Any prior treatment program specific to substance use: No Have you been hit, kicked, punched, or otherwise hurt by someone within the past year? If so, by whom?: No Do you feel safe in your current relationship?: Yes Is there a partner from a previous relationship who is making you feel unsafe now?: No Are you made to feel afraid or neglected: No Spiritual Healthcare Practices: trying to find comfort in many different spiritual practices Advance Directives: No Advance Directives Information Provided: No Do you have thoughts of harming others: None Do you have a plan to hurt others: No Plan Recently lost weight without trying: No Eating poorly because of decreased appetite: No Nutrition Risks: No Nutritional Risk Patient : No : No Poor oral hygiene: No service: No Sexual orientation: Lesbian/Spencer/Homosexual Meds Allergies Allergy/AdvReac Type Severity Reaction Status Date / Time environmental allergies Allergy Unknown Verified 06/01/23 18:38 Active Medications: Current Medications Acetaminophen (Acetaminophen 325 Mg Tablet) 650 mg PO Q6H PRN PRN Reason: Headache/Pain Mild Scale (1-3) Last Admin: 06/15/23 16:39 Dose: 650 mg Al Hydroxide/Mg Hydroxide (Magnesium Hydrox/Alum Hydrox 30 Ml Oral.Susp) 30 ml PO Q6H PRN PRN Reason: Heartburn/Nausea Clonidine HCl (Clonidine Hcl 0.1 Mg Tablet) 0.1 mg PO Q4H PRN; Protocol PRN Reason: Anxiety Last Admin: 06/15/23 06:43 Dose: 0.1 mg Divalproex Sodium (Divalproex Sodium Er 250 Mg Tab.Er.24h) 1,250 mg PO BEDTIME TINO Last Admin: 06/14/23 22:36 Dose: 1,250 mg Hydroxyzine HCl (Hydroxyzine Hcl 25 Mg Tablet) 25 mg PO Q6H PRN PRN Reason: Anxiety Last Admin: 06/15/23 13:22 Dose: 25 mg Lamotrigine (Lamotrigine 25 Mg Tablet) 50 mg PO BEDTIME TINO Last Admin: 06/13/23 20:37 Dose: 50 mg [place] Carbonate ([place] Carbonate Er 450 Mg Tablet.Er) 900 mg PO BEDTIME TINO Last Admin: 06/14/23 22:38 Dose: 900 mg Loratadine (Loratadine 10 Mg Tablet) 10 mg PO DAILY [facility] Last Admin: 06/15/23 08:10 Dose: 10 mg Magnesium Hydroxide (Milk Of Magnesia 30 Ml Oral.Susp) 30 ml PO DAILY PRN PRN Reason: Constipation Olanzapine (Olanzapine 5 Mg Tablet) 5 mg PO Q4H PRN PRN Reason: chikis Last Admin: 06/15/23 13:22 Dose: 5 mg Olanzapine (Olanzapine 5 Mg Tablet) 5 mg PO BEDTIME TINO Last Admin: 06/14/23 22:37 Dose: 5 mg Spironolactone (Spironolactone 25 Mg Tablet) 25 mg PO BID TINO; Protocol Last Admin: 06/15/23 08:10 Dose: 25 mg Trazodone HCl (Trazodone Hcl 50 Mg Tablet) 50 mg PO BEDTIME MRX1 PRN PRN Reason: Insomnia Last Admin: 06/14/23 22:37 Dose: 50 mg Home Medications Medication Instructions Recorded Confirmed Last Taken Type cetirizine 10 mg tablet 10 mg PO DAILY 06/01/23 06/01/23 Unknown History lamotrigine 25 mg tablet 50 mg PO BEDTIME 06/01/23 06/01/23 05/31/23 20:00 History spironolactone 25 mg tablet 25 mg PO BID 06/01/23 06/01/23 06/01/23 08:00 History Physical Exam 2 Vital Signs and Narrative: Vital Signs: Last Vital Signs Temp 98.1 F 06/15/23 08:25 Pulse 70 06/15/23 08:25 Resp 16 06/15/23 08:25 BP 96/53 L 06/15/23 08:25 Pulse Ox 97 06/15/23 08:25 O2 Del Method Room Air 06/15/23 08:25 BMI result Body Mass Index 44.2 General: AOx3, no acute distress Resp: CTA bilaterally CVS: S1, S2, RRR GI: +BS, NT, no distention Skin: Areas of maculopapular rash on posterior calves bilaterally, more diffuse inner thighs bilaterally. Rash on posterior calf pictured below Neuro: Cranial nerves II-XII grossly intact bilaterally. Motor grossly intact bilaterally Extremities: No edema. Results Labs 06/14/23 09:38 06/14/23 09:38 Assessment and Plan (1) Maculopapular rash: Status: Acute Plan Patient is a 27-year-old female with a PMH significant for bipolar disorder who was admitted to psychiatry unit for manic episode and disorganized thought. Medical consult for bilateral rash on calf and thighs for patient on Lamictal to r/o SJS. Bilateral extremity rash Possibly secondary to lamotrigine use, started 1 week prior to rash eruption SJS unlikely: no prodrome flu-like symptoms, no desquamation Rash is not the predicted or painful, no intervention indicated at this time Lamotrigine on hold since last filling room operator for resolution of rash Thank you for allowing us to participate in the care of this patient. Signing off at this time. Please re-consult if rash worsens, pt develops additional symptoms, or skin begins to slough off.
[2023-06-15] MEDS: Lithium Carbonate ER 450 MG TABLET.ER 900 MG PO (22:27)
[2023-06-15] MEDS: traZODone HCL 50 MG TABLET PO (22:27)
[2023-06-15] MEDS: Divalproex Sodium ER 250 MG TAB.ER.24H 1250 MG PO (22:28)
[2023-06-16] MEDS: OLANZapine 5 MG TABLET PO ×3 (01:55→22:27)
[2023-06-16] MEDS: hydrOXYzine HCL 25 MG TABLET PO (06:52)
[2023-06-16] MEDS: Loratadine 10 MG TABLET PO (08:44)
[2023-06-16] MEDS: Spironolactone 25 MG TABLET PO ×2 (08:44→20:22)
[2023-06-16 08:47] VITALS: BP 96/61; PULSE 82; RESP 16; TEMP 37; O2SAT 98
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
[2023-06-16 18:00] VITALS: BP 141/86; PULSE 87; TEMP 36.9; O2SAT 100
[2023-06-16] MEDS: Lithium Carbonate ER 450 MG TABLET.ER 900 MG PO (20:21)
[2023-06-16] MEDS: Divalproex Sodium ER 250 MG TAB.ER.24H 1250 MG PO (20:22)
[2023-06-16] MEDS: traZODone HCL 50 MG TABLET PO (20:22)
[2023-06-16] MEDS: lamoTRIgine 25 MG TABLET 50 MG PO (20:22)
[2023-06-17] MEDS: Spironolactone 25 MG TABLET PO ×2 (08:22→19:52)
[2023-06-17] MEDS: Loratadine 10 MG TABLET PO (08:22)
[2023-06-17 08:27] VITALS: BP 113/69; PULSE 76; RESP 16; TEMP 36.8; O2SAT 99
[2023-06-17] MEDS: OLANZapine 5 MG TABLET PO ×2 (17:42→19:49)
[2023-06-17] MEDS: Acetaminophen 325 MG TABLET 650 MG PO (17:43)
[2023-06-17 18:00] VITALS: BP 103/58; PULSE 90; RESP 16; TEMP 37; O2SAT 99
[2023-06-17] MEDS: Lithium Carbonate ER 450 MG TABLET.ER 900 MG PO (19:50)
[2023-06-17] MEDS: Divalproex Sodium ER 250 MG TAB.ER.24H 1250 MG PO (19:50)
[2023-06-17] MEDS: lamoTRIgine 25 MG TABLET 50 MG PO (19:51)
--- NOTE | 2023-06-18 00:22 | HO.PSYCHPN ---
Subjective Subjective Date of Service: 06/17/23 Reason For Visit: Bipolar episode Interim History: Pt disorganized some improvement depakote olanzapine Medication Compliance: Yes Mental Status Exam Mental Status Exam Narrative: Pt is alert and oriented; behavior calm but disorganized; cooperative and friendly but also intrusive with peers; patient is not in distress; dressed in casual attire with adequately groomed; mood is described as good and affect a bit perplexed; eye contact appropriate;Speech, normal volume and prosody; intermittently, mild to moderate psychomotor agitation present; thought process can be goal oriented but is very quickly tangential and gets distracted or disorganized; Thought content is on various things, unrelated topics; tx; denies any SI/HI. No AVH Patients insight and judgment impaired Diagnostics Vital Signs (24Hr): Vital Signs - 24 hr 06/17/23 08:27 06/17/23 18:00 Temperature 98.2 F 98.6 F Pulse Rate 76 90 Respiratory Rate 16 16 Blood Pressure 113/69 103/58 L Pulse Oximetry 99 99 Oxygen Delivery Method Room Air Room Air BMI result Body Mass Index 44.2 Labs 06/14/23 09:38 06/14/23 09:38 Medications Medications Current Medications Acetaminophen (Acetaminophen 325 Mg Tablet) 650 mg PO Q6H PRN PRN Reason: Headache/Pain Mild Scale (1-3) Last Admin: 06/17/23 17:43 Dose: 650 mg Al Hydroxide/Mg Hydroxide (Magnesium Hydrox/Alum Hydrox 30 Ml Oral.Susp) 30 ml PO Q6H PRN PRN Reason: Heartburn/Nausea Clonidine HCl (Clonidine Hcl 0.1 Mg Tablet) 0.1 mg PO Q4H PRN; Protocol PRN Reason: Anxiety Last Admin: 06/15/23 06:43 Dose: 0.1 mg Divalproex Sodium (Divalproex Sodium Er 250 Mg Tab.Er.24h) 1,250 mg PO BEDTIME TINO Last Admin: 06/17/23 19:50 Dose: 1,250 mg Hydroxyzine HCl (Hydroxyzine Hcl 25 Mg Tablet) 25 mg PO Q6H PRN PRN Reason: Anxiety Last Admin: 06/16/23 06:52 Dose: 25 mg Lamotrigine (Lamotrigine 25 Mg Tablet) 50 mg PO BEDTIME TINO Last Admin: 06/17/23 19:51 Dose: 50 mg [place] Carbonate ([place] Carbonate Er 450 Mg Tablet.Er) 900 mg PO BEDTIME TINO Last Admin: 06/17/23 19:50 Dose: 900 mg Loratadine (Loratadine 10 Mg Tablet) 10 mg PO DAILY TINO Last Admin: 06/17/23 08:22 Dose: 10 mg Magnesium Hydroxide (Milk Of Magnesia 30 Ml Oral.Susp) 30 ml PO DAILY PRN PRN Reason: Constipation Olanzapine (Olanzapine 5 Mg Tablet) 5 mg PO Q4H PRN PRN Reason: chikis Last Admin: 06/17/23 17:42 Dose: 5 mg Olanzapine (Olanzapine 5 Mg Tablet) 5 mg PO BEDTIME TINO Last Admin: 06/17/23 19:49 Dose: 5 mg Spironolactone (Spironolactone 25 Mg Tablet) 25 mg PO BID TINO; Protocol Last Admin: 06/17/23 19:52 Dose: 25 mg Trazodone HCl (Trazodone Hcl 50 Mg Tablet) 50 mg PO BEDTIME MRX1 PRN PRN Reason: Insomnia Last Admin: 06/16/23 20:22 Dose: 50 mg Allergies Allergies Allergy/AdvReac Type Severity Reaction Status Date / Time environmental allergies Allergy Unknown Verified 06/01/23 18:38 Assessment & Plan Assessment & Plan (1) Maculopapular rash: Status: Acute Code(s): R21 - Rash and other nonspecific skin eruption Plan Consider increase olanzapine check lithium Depakote level Patient is a 27-year-old female with a PMH significant for bipolar disorder who was admitted to psychiatry unit for manic episode and disorganized thought. Medical consult for bilateral rash on calf and thighs for patient on Lamictal to r/o SJS. Bilateral extremity rash Possibly secondary to lamotrigine use, started 1 week prior to rash eruption SJS unlikely: no prodrome flu-like symptoms, no desquamation Rash is not the predicted or painful, no intervention indicated at this time Lamotrigine on hold since last data processing auditor for resolution of rash Thank you for allowing us to participate in the care of this patient. Signing off at this time. Please re-consult if rash worsens, pt develops additional symptoms, or skin begins to slough off. Current note for 06/17/2023 Consider increasing olanzapine check lithium Depakote level Reason for continued inpatient stay Substantial Risk for: inability to function and rapid decompensation Time Spent With Patient Time: Total time managing care of this patient today ____ minutes.
[2023-06-18] MEDS: hydrOXYzine HCL 25 MG TABLET PO (03:31)
[2023-06-18 06:00] VITALS: BP 111/76; PULSE 71; TEMP 36.9; O2SAT 100
[2023-06-18] MEDS: Loratadine 10 MG TABLET PO (08:24)
[2023-06-18] MEDS: Spironolactone 25 MG TABLET PO ×2 (08:24→20:36)
--- NOTE | 2023-06-18 11:32 | HO.PSYCHPN ---
Subjective Subjective Date of Service: 06/18/23 Reason For Visit: Bipolar episode Interim History: Patient more thoughtful organized in thought not psychotically preoccupied mood Mental Status Exam Mental Status Exam Narrative: Patient showing clear improvement organization of thought mood much more stable not overly paranoid Diagnostics Vital Signs (24Hr): Vital Signs - 24 hr 06/17/23 18:00 06/18/23 06:00 Temperature 98.6 F 98.4 F Pulse Rate 90 71 Respiratory Rate 16 Blood Pressure 103/58 L 111/76 Pulse Oximetry 99 100 Oxygen Delivery Method Room Air Room Air BMI result Body Mass Index 44.2 Labs 06/14/23 09:38 06/19/23 11:23 Medications Medications Current Medications Acetaminophen (Acetaminophen 325 Mg Tablet) 650 mg PO Q6H PRN PRN Reason: Headache/Pain Mild Scale (1-3) Last Admin: 06/17/23 17:43 Dose: 650 mg Al Hydroxide/Mg Hydroxide (Magnesium Hydrox/Alum Hydrox 30 Ml Oral.Susp) 30 ml PO Q6H PRN PRN Reason: Heartburn/Nausea Clonidine HCl (Clonidine Hcl 0.1 Mg Tablet) 0.1 mg PO Q4H PRN; Protocol PRN Reason: Anxiety Last Admin: 06/15/23 06:43 Dose: 0.1 mg Divalproex Sodium (Divalproex Sodium Er 250 Mg Tab.Er.24h) 1,250 mg PO BEDTIME TINO Last Admin: 06/17/23 19:50 Dose: 1,250 mg Hydroxyzine HCl (Hydroxyzine Hcl 25 Mg Tablet) 25 mg PO Q6H PRN PRN Reason: Anxiety Last Admin: 06/18/23 03:31 Dose: 25 mg Lamotrigine (Lamotrigine 25 Mg Tablet) 50 mg PO BEDTIME TINO Last Admin: 06/17/23 19:51 Dose: 50 mg [place] Carbonate ([place] Carbonate Er 450 Mg Tablet.Er) 900 mg PO BEDTIME TINO Last Admin: 06/17/23 19:50 Dose: 900 mg Loratadine (Loratadine 10 Mg Tablet) 10 mg PO DAILY TINO Last Admin: 06/18/23 08:24 Dose: 10 mg Magnesium Hydroxide (Milk Of Magnesia 30 Ml Oral.Susp) 30 ml PO DAILY PRN PRN Reason: Constipation Olanzapine (Olanzapine 5 Mg Tablet) 5 mg PO Q4H PRN PRN Reason: chikis Last Admin: 06/17/23 17:42 Dose: 5 mg Olanzapine (Olanzapine 5 Mg Tablet) 5 mg PO BEDTIME TINO Last Admin: 06/17/23 19:49 Dose: 5 mg Spironolactone (Spironolactone 25 Mg Tablet) 25 mg PO BID TINO; Protocol Last Admin: 06/18/23 08:24 Dose: 25 mg Trazodone HCl (Trazodone Hcl 50 Mg Tablet) 50 mg PO BEDTIME MRX1 PRN PRN Reason: Insomnia Last Admin: 06/16/23 20:22 Dose: 50 mg Allergies Allergies Allergy/AdvReac Type Severity Reaction Status Date / Time environmental allergies Allergy Unknown Verified 06/01/23 18:38 Assessment & Plan Assessment & Plan (1) Maculopapular rash: Status: Acute Code(s): R21 - Rash and other nonspecific skin eruption Plan Consider increase olanzapine check lithium Depakote level Patient is a 27-year-old female with a PMH significant for bipolar disorder who was admitted to [facility] psychiatry unit for manic episode and disorganized thought. Medical consult for bilateral rash on calf and thighs for patient on Lamictal to r/o SJS. Bilateral extremity rash Possibly secondary to lamotrigine use, started 1 week prior to rash eruption SJS unlikely: no prodrome flu-like symptoms, no desquamation Rash is not the predicted or painful, no intervention indicated at this time Lamotrigine on hold since last medical oncologist for resolution of rash Thank you for allowing us to participate in the care of this patient. Signing off at this time. Please re-consult if rash worsens, pt develops additional symptoms, or skin begins to slough off. Current note for 06/17/2023 Consider increasing olanzapine check lithium Depakote level 06/18/2023 Continue plan of care Reason for continued inpatient stay Substantial Risk for: harm to self, inability to function and rapid decompensation Time Spent With Patient Time: Total time managing care of this patient today ____ minutes.
[2023-06-18 20:35] VITALS: BP 135/77; PULSE 92; TEMP 37.1
[2023-06-18] MEDS: Divalproex Sodium ER 250 MG TAB.ER.24H 1250 MG PO (20:35)
[2023-06-18] MEDS: OLANZapine 5 MG TABLET PO (20:35)
[2023-06-18] MEDS: lamoTRIgine 25 MG TABLET 50 MG PO (20:36)
[2023-06-18] MEDS: Lithium Carbonate ER 450 MG TABLET.ER 900 MG PO (20:36)
[2023-06-18] MEDS: Acetaminophen 325 MG TABLET 650 MG PO (20:38)
--- NOTE | 2023-06-19 05:14 | PC.NURSE ---
Pt submitted a Three Day Notice on Monday up on 06/22/2023.
[2023-06-19 08:15] VITALS: BP 135/81; PULSE 88; RESP 16; TEMP 37.1; O2SAT 97
[2023-06-19] MEDS: Spironolactone 25 MG TABLET PO ×2 (10:06→21:02)
[2023-06-19] MEDS: Loratadine 10 MG TABLET PO (10:06)
--- NOTE | 2023-06-19 11:04 | P.PNPSI_ITS ---
Subjective Subjective Date of Service: 06/19/23 Reason For Visit: Bipolar episode Subjective Notes: Conditional Voluntary Interim History: Patient pleasant engage future oriented shows clear improvement Mental Status Exam Mental Status Exam Narrative: Patient showing clear improvement organization of thought mood much more stable not overly paranoid Diagnostics Vital Signs (24Hr): Vital Signs - 24 hr 06/18/23 20:35 Temperature 98.8 F Pulse Rate 92 Blood Pressure 135/77 BMI result Body Mass Index 44.2 Labs 06/14/23 09:38 06/19/23 11:23 Medications Medications Current Medications Acetaminophen (Acetaminophen 325 Mg Tablet) 650 mg PO Q6H PRN PRN Reason: Headache/Pain Mild Scale (1-3) Last Admin: 06/18/23 20:38 Dose: 650 mg Al Hydroxide/Mg Hydroxide (Magnesium Hydrox/Alum Hydrox 30 Ml Oral.Susp) 30 ml PO Q6H PRN PRN Reason: Heartburn/Nausea Clonidine HCl (Clonidine Hcl 0.1 Mg Tablet) 0.1 mg PO Q4H PRN; Protocol PRN Reason: Anxiety Last Admin: 06/15/23 06:43 Dose: 0.1 mg Divalproex Sodium (Divalproex Sodium Er 250 Mg Tab.Er.24h) 1,250 mg PO BEDTIME TINO Last Admin: 06/18/23 20:35 Dose: 1,250 mg Hydroxyzine HCl (Hydroxyzine Hcl 25 Mg Tablet) 25 mg PO Q6H PRN PRN Reason: Anxiety Last Admin: 06/18/23 03:31 Dose: 25 mg Lamotrigine (Lamotrigine 25 Mg Tablet) 50 mg PO BEDTIME TINO Last Admin: 06/18/23 20:36 Dose: 50 mg [place] Carbonate ([place] Carbonate Er 450 Mg Tablet.Er) 900 mg PO BEDTIME TINO Last Admin: 06/18/23 20:36 Dose: 900 mg Loratadine (Loratadine 10 Mg Tablet) 10 mg PO DAILY TINO Last Admin: 06/19/23 10:06 Dose: 10 mg Magnesium Hydroxide (Milk Of Magnesia 30 Ml Oral.Susp) 30 ml PO DAILY PRN PRN Reason: Constipation Olanzapine (Olanzapine 5 Mg Tablet) 5 mg PO Q4H PRN PRN Reason: chikis Last Admin: 06/17/23 17:42 Dose: 5 mg Olanzapine (Olanzapine 5 Mg Tablet) 5 mg PO BEDTIME TINO Last Admin: 06/18/23 20:35 Dose: 5 mg Spironolactone (Spironolactone 25 Mg Tablet) 25 mg PO BID TINO; Protocol Last Admin: 06/19/23 10:06 Dose: 25 mg Trazodone HCl (Trazodone Hcl 50 Mg Tablet) 50 mg PO BEDTIME MRX1 PRN PRN Reason: Insomnia Last Admin: 06/16/23 20:22 Dose: 50 mg Allergies Allergies Allergy/AdvReac Type Severity Reaction Status Date / Time environmental allergies Allergy Unknown Verified 06/01/23 18:38 Assessment & Plan Assessment & Plan (1) Maculopapular rash: Status: Acute Code(s): R21 - Rash and other nonspecific skin eruption Plan Consider increase olanzapine check lithium Depakote level Patient is a 27-year-old female with a PMH significant for bipolar disorder who was admitted to [facility] psychiat[facility] unit for manic episode and disorganized thought. Medical consult for bilateral rash on calf and thighs for patient on Lamictal to r/o SJS. Bilateral extremity rash Possibly secondary to lamotrigine use, started 1 week prior to rash eruption SJS unlikely: no prodrome flu-like symptoms, no desquamation Rash is not the predicted or painful, no intervention indicated at this time Lamotrigine on hold since last corporate strategy intern for resolution of rash Thank you for allowing us to participate in the care of this patient. Signing off at this time. Please re-consult if rash worsens, pt develops additional symptoms, or skin begins to slough off. Current note for 06/17/2023 Consider increasing olanzapine check lithium Depakote level 06/19/2023 Continue plan of care discharge planning Reason for continued inpatient stay Substantial Risk for: inability to function and rapid decompensation Time Spent With Patient Time: Total time managing care of this patient today ____ minutes.
[2023-06-19 11:40] LABS: Lithium 0.61 mmol/L (0.60-1.20); Lithium 0.63 mmol/L (0.60-1.20)
[2023-06-19 11:41] LABS: Ammonia 43 umol/L (13-55)
[2023-06-19 11:44] LABS: Valproate 70.8 mcg/mL (50.0-100.0)
[2023-06-19 11:49] LABS: Alanine Aminotransferase 24 U/L (0-31); Albumin Level 4.3 g/dL (3.5-5.0); Alkaline Phosphatase 62 U/L (39-117); Anion Gap 14 (12-20); Aspartate Amino Transferase 26 U/L (5-31); Bilirubin Total 0.2 mg/dL (0.0-1.0); Blood Urea Nitrogen 8 mg/dL (9-16); Calcium 10.1 mg/dL (8.4-10.2); Carbon Dioxide 28 mmol/L (22-29); Chloride 104 mmol/L (96-108); Creatinine Clr Calc Pharmacy 109.2; Estimated Glomerular Filt Rate > 60; Glucose Fasting 99 mg/dL (60-99); Potassium 4.1 mmol/L (3.3-5.1); Sodium 142 mmol/L (135-145); Total Protein 8.1 g/dL (6.5-8.0)
[2023-06-19] MEDS: hydrOXYzine HCL 25 MG TABLET PO (17:29)
[2023-06-19] MEDS: cloNIDine HCL 0.1 MG TABLET PO (17:29)
[2023-06-19 18:00] VITALS: BP 127/74; PULSE 82; RESP 18; TEMP 36.4; O2SAT 98
[2023-06-19] MEDS: OLANZapine 5 MG TABLET PO (19:02)
[2023-06-19] MEDS: Divalproex Sodium ER 250 MG TAB.ER.24H 1250 MG PO (21:02)
[2023-06-19] MEDS: Lithium Carbonate ER 450 MG TABLET.ER 900 MG PO (21:03)
[2023-06-19] MEDS: traZODone HCL 50 MG TABLET PO (21:04)
[2023-06-19] MEDS: lamoTRIgine 25 MG TABLET 50 MG PO (21:04)
[2023-06-20] MEDS: hydrOXYzine HCL 25 MG TABLET PO ×2 (01:08→23:19)
[2023-06-20] MEDS: OLANZapine 5 MG TABLET PO (01:08)
[2023-06-20 08:45] VITALS: BP 109/61; PULSE 87; RESP 16; TEMP 36.9; O2SAT 100
[2023-06-20] MEDS: Spironolactone 25 MG TABLET PO ×2 (08:53→20:06)
[2023-06-20] MEDS: Loratadine 10 MG TABLET PO (08:53)
--- NOTE | 2023-06-20 16:09 | HO.PSYCHPN ---
Subjective Subjective Date of Service: 06/20/23 Reason For Visit: Bipolar episode Subjective Notes: 3 Day Healthcare Proxy: No Guardianship: No Medical Problems Affecting Mental Status: No Interim History: Three day notice submitted. Reports poor sleep (3 hours) Improvement notes with some illogical content. Review of med regime, current sx. Will increase Olanzapine to 10 mg hs with pt approval to assist with sleep quality and decrease need for prn. Reports she awakens hearing noise in the [place] and I feel the sense of urgency to wake States Olanzapine prn helps her return, thus her agreement to change standing dose to 10 mg. Discussed her TDN. Discussed her comforts of order and organization and would like to review regime with Marylou, PCP, therapist and prescriber for their agreement prior to discharge. Medication Compliance: Yes Side effects from medications: No Attending Groups: Intermittent Review of Systems Acute medical concerns: No Medical Review of Systems: unchanged Review of Systems Review of Systems Yes all other systems are reviewed and are negative (pt denies sx today.) Mental Status Exam Mental Status Exam Patient Appearance: Appropriate Patient Orientation: Person, Place, Time and Situation Level of Consciousness: Alert Patient Behavior: Appropriate, Talkative, Cooperative and Good Eye Contact Mood Description: Anxious Affect Description: Anxious and Apprehensive Patient Cognition Impaired: No Ability to Follow Directions: Good Speech Pattern: Spontaneous Speech Memory Description: Episodic Impaired Hallucinations: None Delusions: Not Present Perceptual Disturbances: Depersonalization Thought Process: Distracted Thought Content: positive for Circumstantial and positive for Suicidal Ideation (denies) Depressive Symptoms: Increased Anxiety and Difficulty Sleeping Judgement: Fair Diagnostics Vital Signs (24Hr): Vital Signs - 24 hr 06/19/23 18:00 06/20/23 08:45 Temperature 97.6 F 98.4 F Pulse Rate 82 87 Respiratory Rate 18 16 Blood Pressure 127/74 109/61 Pulse Oximetry 98 100 Oxygen Delivery Method Room Air Room Air BMI result Body Mass Index 44.2 Labs 06/14/23 09:38 06/19/23 11:23 Labs: Laboratory Results - last 48 hr 06/19/23 06/19/23 06/19/23 11:22 11:23 11:23 Sodium 142 Potassium 4.1 Chloride 104 Carbon Dioxide 28 Anion Gap 14 BUN 8 L Creatinine 0.86 Estim Creat Clear Calc 109.2 Estimated GFR > 60 Fasting Glucose 99 Calcium 10.1 Total Bilirubin 0.2 AST 26 ALT 24 Alkaline Phosphatase 62 Ammonia 43 Total Protein 8.1 H Albumin 4.3 Valproic Acid 70.8 [place] 0.61 0.63 Medications Medications Current Medications Acetaminophen (Acetaminophen 325 Mg Tablet) 650 mg PO Q6H PRN PRN Reason: Headache/Pain Mild Scale (1-3) Last Admin: 06/18/23 20:38 Dose: 650 mg Al Hydroxide/Mg Hydroxide (Magnesium Hydrox/Alum Hydrox 30 Ml Oral.Susp) 30 ml PO Q6H PRN PRN Reason: Heartburn/Nausea Clonidine HCl (Clonidine Hcl 0.1 Mg Tablet) 0.1 mg PO Q4H PRN; Protocol PRN Reason: Anxiety Last Admin: 06/19/23 17:29 Dose: 0.1 mg Divalproex Sodium (Divalproex Sodium Er 250 Mg Tab.Er.24h) 1,250 mg PO BEDTIME TINO Last Admin: 06/19/23 21:02 Dose: 1,250 mg Hydroxyzine HCl (Hydroxyzine Hcl 25 Mg Tablet) 25 mg PO Q6H PRN PRN Reason: Anxiety Last Admin: 06/20/23 01:08 Dose: 25 mg Lamotrigine (Lamotrigine 25 Mg Tablet) 50 mg PO BEDTIME TINO Last Admin: 06/19/23 21:04 Dose: 50 mg [place] Carbonate ([place] Carbonate Er 450 Mg Tablet.Er) 900 mg PO BEDTIME TINO Last Admin: 06/19/23 21:03 Dose: 900 mg Loratadine (Loratadine 10 Mg Tablet) 10 mg PO DAILY TINO Last Admin: 06/20/23 08:53 Dose: 10 mg Magnesium Hydroxide (Milk Of Magnesia 30 Ml Oral.Susp) 30 ml PO DAILY PRN PRN Reason: Constipation Olanzapine (Olanzapine 5 Mg Tablet) 5 mg PO Q4H PRN PRN Reason: chikis Last Admin: 06/19/23 19:02 Dose: 5 mg Olanzapine (Olanzapine 5 Mg Tablet) 5 mg PO BEDTIME TINO Last Admin: 06/20/23 01:08 Dose: 5 mg Spironolactone (Spironolactone 25 Mg Tablet) 25 mg PO BID TINO; Protocol Last Admin: 06/20/23 08:53 Dose: 25 mg Trazodone HCl (Trazodone Hcl 50 Mg Tablet) 50 mg PO BEDTIME MRX1 PRN PRN Reason: Insomnia Last Admin: 06/19/23 21:04 Dose: 50 mg Allergies Allergies Allergy/AdvReac Type Severity Reaction Status Date / Time environmental allergies Allergy Unknown Verified 06/01/23 18:38 Assessment & Plan Assessment & Plan (1) Maculopapular rash: Status: Acute Code(s): R21 - Rash and other nonspecific skin eruption Plan Consider increase olanzapine check lithium Depakote level Patient is a 27-year-old female with a PMH significant for bipolar disorder who was admitted to psychiatry unit for manic episode and disorganized thought. Medical consult for bilateral rash on calf and thighs for patient on Lamictal to r/o SJS. Bilateral extremity rash Possibly secondary to lamotrigine use, started 1 week prior to rash eruption SJS unlikely: no prodrome flu-like symptoms, no desquamation Rash is not the predicted or painful, no intervention indicated at this time Lamotrigine on hold since last residential installer for resolution of rash Thank you for allowing us to participate in the care of this patient. Signing off at this time. Please re-consult if rash worsens, pt develops additional symptoms, or skin begins to slough off. Current note for 06/17/2023 Consider increasing olanzapine check lithium Depakote level 06/19/2023 Continue plan of care discharge planning 06/20/23- Increase Olanzapine to 10 mg HS. Informed Consent: further education needed Reason for continued inpatient stay Substantial Risk for: rapid decompensation Time Spent With Patient Time: Total time managing care of this patient today ____ minutes.
[2023-06-20 18:00] VITALS: BP 118/65; PULSE 92; RESP 18; TEMP 36.9; O2SAT 98
[2023-06-20] MEDS: Divalproex Sodium ER 250 MG TAB.ER.24H 1250 MG PO (20:05)
[2023-06-20] MEDS: lamoTRIgine 25 MG TABLET 50 MG PO (20:06)
[2023-06-20] MEDS: traZODone HCL 50 MG TABLET PO (20:06)
[2023-06-20] MEDS: OLANZapine 10 MG TABLET PO (20:06)
[2023-06-20] MEDS: Lithium Carbonate ER 450 MG TABLET.ER 900 MG PO (20:06)
[2023-06-21 08:17] VITALS: BP 114/61; PULSE 99; RESP 16; TEMP 36.9; O2SAT 97
[2023-06-21] MEDS: Spironolactone 25 MG TABLET PO ×2 (08:44→22:00)
[2023-06-21] MEDS: Loratadine 10 MG TABLET PO (08:44)
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
[2023-06-21] MEDS: OLANZapine 5 MG TABLET PO (12:23)
[2023-06-21] MEDS: cloNIDine HCL 0.1 MG TABLET PO (16:01)
[2023-06-21 18:35] VITALS: BP 122/70; PULSE 86; RESP 16; TEMP 36.8; O2SAT 99
[2023-06-21] MEDS: lamoTRIgine 25 MG TABLET 50 MG PO (21:58)
[2023-06-21] MEDS: Lithium Carbonate ER 450 MG TABLET.ER 900 MG PO (21:59)
[2023-06-21] MEDS: Divalproex Sodium ER 250 MG TAB.ER.24H 1250 MG PO (21:59)
[2023-06-21] MEDS: OLANZapine 10 MG TABLET PO (22:01)
[2023-06-21] MEDS: Hydrocortisone 1 % Cream 28.35 GM TUBE 1 APPL TOPICAL (22:11)
[2023-06-22 07:35] VITALS: BP 104/70; PULSE 72; RESP 16; TEMP 36.4; O2SAT 99
[2023-06-22] MEDS: Loratadine 10 MG TABLET PO (08:32)
[2023-06-22] MEDS: Spironolactone 25 MG TABLET PO (08:32)
[2023-06-22] MEDS: OLANZapine 5 MG TABLET PO (09:11)
[2023-06-22] MEDS: Hydrocortisone 1 % Cream 28.35 GM TUBE 1 APPL TOPICAL (09:12)
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
[2023-06-22] MEDS: cloNIDine HCL 0.1 MG TABLET PO (11:14)
[2023-06-22 11:15] VITALS: BP 123/62; PULSE 92
[2023-06-22] MEDS: Acetaminophen 325 MG TABLET 650 MG PO (12:51)
== END 2023-06-22 14:41 | disposition home or self-care (01) | DRG 885 ==
LOC: HO.ED 06-02 08:40 → HO.PM5 06-02 08:49
PROVIDERS: Physician Assistant Medical; Psychiatry & Neurology Psychiatry; Social Worker; Student in an Organized Health Care Education/Training Program; Admitting Provider Clinical Nurse Specialist Psychiatric/Mental Health, Adult; Emergency Provider Internal Medicine; PCP Nurse Practitioner Adult Health; Visit Provider Psychiatry & Neurology Psychiatry
DX: F31.2 Bipolar disorder, current episode manic severe with psychotic features (principal); L27.1 Localized skin eruption due to drugs and medicaments taken internally; T42.6X5A Adverse effect of other antiepileptic and sedative-hypnotic drugs, initial encounter; Z20.822 Contact with and (suspected) exposure to COVID-19; Z79.899 Other long term (current) drug therapy
CPT/HCPCS: 0241U; 36415; 80048; 80051; 80053; 80076; 80164; 80178; 80307; 81001; 81025; 82140; 82565; 84443; 84520; 85025; 87635; 99285; S9485

== ENCOUNTER → 2023-06-02 08:28 | Outpatient (BNV) | payer OTHER, SELFPAY | PROVIDERS: Admitting Provider Clinical Nurse Specialist Psychiatric/Mental Health, Adult; Emergency Provider Internal Medicine; PCP Nurse Practitioner Adult Health; Visit Provider Psychiatry & Neurology Psychiatry | DX: F31.2 Bipolar disorder, current episode manic severe with psychotic features (principal); F43.11 Post-traumatic stress disorder, acute; R21 Rash and other nonspecific skin eruption | CPT/HCPCS: 90792; 99231; 99232; 99238 ==

== ENCOUNTER → 2023-06-02 08:28 | Outpatient (BNV) | payer OTHER, SELFPAY | PROVIDERS: Admitting Provider Clinical Nurse Specialist Psychiatric/Mental Health, Adult; Emergency Provider Internal Medicine; PCP Nurse Practitioner Adult Health; Visit Provider Student in an Organized Health Care Education/Training Program | DX: R21 Rash and other nonspecific skin eruption (principal) | CPT/HCPCS: 99221 ==

== ENCOUNTER → 2023-06-02 08:28 | Outpatient (BNV) | payer OTHER, SELFPAY | PROVIDERS: Admitting Provider Clinical Nurse Specialist Psychiatric/Mental Health, Adult; Emergency Provider Internal Medicine; PCP Nurse Practitioner Adult Health; Visit Provider Psychiatry & Neurology Psychiatry | DX: F31.2 Bipolar disorder, current episode manic severe with psychotic features (principal); F43.11 Post-traumatic stress disorder, acute; R21 Rash and other nonspecific skin eruption | CPT/HCPCS: 99231 ==

== ENCOUNTER 2023-07-28 09:15 | Outpatient (RCR) | payer OTHER, SELFPAY ==
[2023-07-17 13:06] VITALS: BP 102/60; PULSE 80; TEMP 37.4
[2023-07-17 13:10] VITALS: BMI 45.2
--- NOTE | 2023-07-17 13:53 | PC.ADMIT ---
Patient is a 27 year old female who was referred to [facility] by [facility] inpatient behavioral health unit d/t mood instability. According to records patient has a history of Bipolar disorder most recent episode manic as she presented as hyperactive. Her speech was hyperverbal, tangential and pressured. She was reportedly difficult to understand at times, not logical talking about data bases. Along with some grandiosity. She reports she had not been sleeping for days prior to hospitalization. Patient currently presented with anxious mood and affect. She denied SI. I gave her a copy of her safety plan if needed. She is calm and cooperative. Speech is WNL. Thoughts are logical, no delusions noted. She wants more support while at [facility] with continued mood stabilization so she does not have to go back to inpatient LOC. Medications reconciled with d/c medication list from inpatient LOC. Patient reports some changes were made by her prescriber Dr Paredes including d/c of Lamotrigine and decreased Hydroxyzine to daily at .
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
--- NOTE | 2023-07-20 18:29 | HO.PHP ---
Client's case has been opened and reviewed in treatment team.
--- NOTE | 2023-07-24 19:30 | P.PNPSP_ITS ---
Subjective Subjective Date of Service: 07/24/23 Reason For Visit: bipolar Interim History: Patient still reports having shakes, even with lowering dose of lithium Er from 900 mg to 450 mg last week. She has not appreciated any reemergence of manic symptoms, however she reports feeling more tired and perhaps slightly lower mood. She reports that the fatigue might be related to OTC cetirizine which she reportedly finds more sedating than the prescribed version and asks if this can be refilled today. She still appears emotionally blunted and given ongoing tremor, suspect patient is still overmedicated. For now, will turn attention to lowering the Depakote, since it's primarily for treating manic side of bipolar spectrum; decreasing it is less likely to cause depression (vs lithium and olanzapine better for depressive sx) may consider propranolol for tremors, however would rather identify and reduce the medication that may be causing tremors (pt denies any hx of tremors prior to hospitalization/start on current 3 mood stabilizers) Complains of depressive symptoms (low mood, low energy, low motivation, numbness, apathy). she denies feeling sadness or dysphoria, denies hopelessness or SI - perhaps symptoms are related to being overmedicated she presents with some signs of physical and cognitive slowing (minimal blinking, flat affect, lacking spontaneity of expressions of movements, gait lacking fluidity (no arm swing) She agrees to plan to try lowering dose of Depakote, and is aware to watch for any emerging s/s of chikis or overactivation Medication Compliance: Yes Side effects from medications: Yes (as noted) Attending Groups: Yes Review of Systems Acute medical concerns: Yes Mental Status Exam Mental Status Exam Narrative: Alert, oriented, in no acute distress. Calm, cooperative, engaged. No psychomotor agitation, perhaps some psychomotor slowing, but no neurovegetative retardation. Eye contact maintained. Mood depressed, blunted affect. Speech normal. Thought process linear, coherent. Thought content related to stressors, denies transient hopelessness, denies SI or HI. No paranoia or delusional content elicited. No evidence of psychosis. Insight and judgment fair but adequate. Diagnostics Vital Signs (24Hr): BMI result Body Mass Index 45.2 Assessment & Plan Assessment & Plan (1) Bipolar I disorder with depression: Status: Acute Code(s): F31.9 - Bipolar disorder, unspecified (2) PTSD (post-traumatic stress disorder): Status: Acute Code(s): F43.10 - Post-traumatic stress disorder, unspecified Plan decrease Depakote ER to 1000 mg qhs (from 1250 mg) continue lithium ER 450 mg qhs (?tremor) continue olanzapine 10 mg continue olanzapine 5 mg PRN agitation hold clonidine (pt is not taking currently) lab work from 05/2023 reviewed including Li and VPA levels, LFTs, renal and thyroid fxn continue to monitor Telehealth Location of provider rendering services: other (private office) Location of patient: other ([facility] Patient Identification confirmed using: Name, : Yes Telehealth method: video Patient verbally consented to treatment: Yes Minutes spent on Phone/Video with Pt.: 30 Patient educated on: diagnosis and medication risk/benefits Informed Consent: understands Reason for contiued partial hosp. stay Substantial Risk for: inability to function, rapid decompensation and med/psych decompensation Certification I certify that partial hospital treatment is medically necessary due to the symptoms and problems resulting from the patient's mental illness and the failure to treat the patient at the partial hospital level of care would likely result in the patient requiring inpatient psychiatric care which could not be prevented at a less intensive level of care. Total time managing care of this patient today __30__ minutes. Discharge Plan Discharge Attending provider: Sonia Uriostegui Additional Instructions: Gela's Intake appointment is scheduled on July 31, 2023 at 1 PM with Jermaine Page at [address] [place] [address]. Gela's med provider appointment is scheduled for August 17, 2023 at 9 AM with Joseph Almendarez at [address] [place] [address]. Medications: Continued olanzapine 5 mg Tablet 5 mg PO Q8H PRN (Reason: chikis) 30 Days Qty: 60 0RF cetirizine 10 mg Tablet 10 mg PO DAILY 30 Days Qty: 30 0RF olanzapine 10 mg Tablet 10 mg PO BEDTIME 30 Days Qty: 30 0RF divalproex 500 mg tablet,delayed release (DR/EC) 1,000 mg PO BEDTIME 30 Days Qty: 60 0RF Rx Instructions: take with 250 mg tab spironolactone 25 mg tablet 25 mg PO BID 30 Days Qty: 60 0RF lithium carbonate 450 mg Tablet Extended Release 900 mg PO BEDTIME 30 Days Qty: 60 0RF Changed metformin 500 mg tablet 250 mg PO TID Qty: 45 0RF Rx Instructions: as directed; to mitigate weight gain from olanzapine clonidine HCl 0.1 mg Tablet 0.1 mg PO BID PRN (Reason: Anxiety) 30 Days Qty: 60 0RF Protocol: Hold for SBP< HOLD for SBP < : 90 hydroxyzine HCl 25 mg tablet 25 - 50 mg PO BEDTIME PRN (Reason: insomnia) Qty: 30 0RF Held trazodone 50 mg Tablet 50 mg PO BEDTIME PRN (Reason: Insomnia) 30 Days Qty: 30 0RF Hold Instructions: Resume on 07/31/23. Discontinued divalproex 250 mg Tablet Extended Release 24 Hr 250 mg PO BEDTIME 30 Days Qty: 30 0RF Stand Alone Forms: Patient Portal Discharge page Patient Education: Bipolar Disorder (DC)
--- NOTE | 2023-07-27 17:25 | HO.PHP ---
PHP staff member placed a referral for med management to [facility] for Gela. PHP staff member is awaiting a call with a scheduled date and time.
--- NOTE | 2023-07-28 23:55 | P.PNPSP_ITS ---
Subjective Subjective Date of Service: 07/28/23 Reason For Visit: bipolar Interim History: I think I'm doing okay now Patient reports tolerating the decrease in Depakote. She repots feeling better. She is expected to return to work on Monday and says she is looking forward to seeing her coworkers and friends. She feels she has gained a lot of skills while in the program and feels she is ready for discharge. She reports mood is good , she denies any depressive symptoms, she appears less blunted, some brightening of affect, though still somewhat slowed, which patient is apparently unaware of but says her family and close friends had noticed, but also says they think she is looking better this week. She reports sleep, energy appetite are intact. She has been tolerating metformin, and is open to bumping the dose up, seeing as she is still putting weight on though is hopeful this has slowed in the past few weeks. She repors putting on an additional 5-8 lbs in past 2 weeks, which apparently is slowed from the initial 30+ lbs she put on last month. She does not have an outpatient psychiatric provider but says SW is helping her put in a referral at [facility]. In the meantime she has been on a 60-90 day wait list at [facility] for Dr. Petit but has yet to receive an appointment. In the meantime she will continue to work with the psych provider through her PCP office, Dr. Joseph Ortega until she is connected with a [facility] psych [facility]. She anticipates a therapy appointment later today, therapist is in private practice. Medication Compliance: Yes Side effects from medications: No Attending Groups: Yes Review of Systems Acute medical concerns: No Mental Status Exam Mental Status Exam Narrative: Alert, oriented, in no acute distress. Calm, cooperative, engaged. No psychomotor agitation or neurovegetative retardation. Eye contact maintained. M ood euthymic, affect constricted, some moments of brightening. Speech normal. Thought process linear, coherent. Thought content related to stressors, transient hopelessness, denies SI or HI. No paranoia or delusional content elicited. No evidence of psychosis. Insight and judgment fair-good Diagnostics Vital Signs (24Hr): BMI result Body Mass Index 45.2 Assessment & Plan Assessment & Plan (1) Bipolar 1 disorder: Status: Acute Code(s): F31.9 - Bipolar disorder, unspecified (2) PTSD (post-traumatic stress disorder): Status: Acute Code(s): F43.10 - Post-traumatic stress disorder, unspecified Plan [facility]charge from [facility] continue on current medication regime Patient educated on: diagnosis and medication risk/benefits Informed Consent: understands Reason for contiued partial hosp. stay Substantial Risk for: stable for discharge Certification I certify that partial hospital treatment is medically necessary due to the symptoms and problems resulting from the patient's mental illness and the failure to treat the patient at the partial hospital level of care would likely result in the patient requiring inpatient psychiatric care which could not be prevented at a less intensive level of care. Total time managing care of this patient today _30___ minutes. Discharge Plan Discharge Attending provider: Sonia Uriostegui Additional Instructions: Gela's Intake appointment is scheduled on July 31, 2023 at 1 PM with Jermaine aPge at [address] [place] [address]. Gela's med provider appointment is scheduled for August 17, 2023 at 9 AM with Joseph Almendarez at [address] [place] [address]. Medications: Continued olanzapine 5 mg Tablet 5 mg PO Q8H PRN (Reason: chikis) 30 Days Qty: 60 0RF cetirizine 10 mg Tablet 10 mg PO DAILY 30 Days Qty: 30 0RF olanzapine 10 mg Tablet 10 mg PO BEDTIME 30 Days Qty: 30 0RF divalproex 500 mg tablet,delayed release (DR/EC) 1,000 mg PO BEDTIME 30 Days Qty: 60 0RF Rx Instructions: take with 250 mg tab spironolactone 25 mg tablet 25 mg PO BID 30 Days Qty: 60 0RF lithium carbonate 450 mg Tablet Extended Release 900 mg PO BEDTIME 30 Days Qty: 60 0RF Changed metformin 500 mg tablet 250 mg PO TID Qty: 45 0RF Rx Instructions: as directed; to mitigate weight gain from olanzapine clonidine HCl 0.1 mg Tablet 0.1 mg PO BID PRN (Reason: Anxiety) 30 Days Qty: 60 0RF Protocol: Hold for SBP< HOLD for SBP < : 90 hydroxyzine HCl 25 mg tablet 25 - 50 mg PO BEDTIME PRN (Reason: insomnia) Qty: 30 0RF Held trazodone 50 mg Tablet 50 mg PO BEDTIME PRN (Reason: Insomnia) 30 Days Qty: 30 0RF Hold Instructions: Resume on 07/31/23. Discontinued divalproex 250 mg Tablet Extended Release 24 Hr 250 mg PO BEDTIME 30 Days Qty: 30 0RF Stand Alone Forms: Patient Portal Discharge page Patient Education: Bipolar Disorder (DC)
== END 2023-07-28 23:59 | disposition home or self-care (01) ==
LOC: HO.PHPA 09:15
PROVIDERS: Visit Provider Psychiatry & Neurology Psychiatry
DX: F31.73 Bipolar disorder, in partial remission, most recent episode manic (principal); F43.10 Post-traumatic stress disorder, unspecified; Z79.899 Other long term (current) drug therapy
CPT/HCPCS: 90791; 90853

== ENCOUNTER → 2023-07-28 09:15 | Outpatient (BNV) | payer OTHER, SELFPAY | PROVIDERS: Visit Provider Psychiatry & Neurology Psychiatry | DX: F31.73 Bipolar disorder, in partial remission, most recent episode manic (principal); F43.10 Post-traumatic stress disorder, unspecified | CPT/HCPCS: 90792; 99213 ==